=== PATIENT | female | born 1945 | race Caucasian/White ===

== ENCOUNTER 2025-01-20 16:24 | Emergency (ER) | payer OTHER ==
[~2025-01-20] VITALS: Ht 157.4 cm; Wt 81.2 kg
== END 2025-01-20 17:55 | disposition home or self-care (01) ==
LOC: ED 16:24
DX: S83.92XA Sprain of unspecified site of left knee, initial encounter (principal); S09.90XA Unspecified injury of head, initial encounter; I10 Essential (primary) hypertension; E78.5 Hyperlipidemia, unspecified; W18.09XA Striking against other object with subsequent fall, initial encounter; Y93.89 Activity, other specified; Y92.89 Other specified places as the place of occurrence of the external cause; Y99.8 Other external cause status